=== PATIENT | male | born 2000 | race Caucasian/White ===

== ENCOUNTER 2019-09-09 18:01 | Emergency (ER) | payer OTHER ==
[~2019-09-09] VITALS: Ht 165.1 cm; Wt 63.5 kg
[2019-09-09 18:10] VITALS: Ht 165.1 cm; Wt 63.5 kg
[2019-09-09 18:39] VITALS: BP 127/71
== END 2019-09-09 18:39 | disposition other institution (70) ==
LOC: ED 18:01
DX: Z02.89 Encounter for other administrative examinations (principal)